=== PATIENT | female | born 1995 | race Caucasian/White ===

== ENCOUNTER 2016-07-20 15:51 | Emergency (ER) | payer OTHER ==
[2016-07-20 15:56] VITALS: BP 141/52; PULSE 70; TEMP 97.8; BMI 22.6
[2016-07-20 17:04] LABS: BASOPHIL 0.4 % (0-2.0); EOSINOPHIL 1.6 % (0-4.5); MCH 29.3 pg (25.7-33.7); MCHC 32.6 g/dl (32.0-36.0); MEAN CELL VOLUME 89.8 fl (80-96); MEAN PLT VOLUME 8.1 fl (7.5-11.1); PLATELET COUNT 261 K/MM3 (134-434); RDW 13.9 % (11.6-15.6); WHITE BLOOD COUNT 7.1 K/mm3 (4.0-10.0)
[2016-07-20 17:44] LABS: URINE APPEARANCE SLCLOUDY; URINE BILIRUBIN NEGATIVE (NEGATIVE); URINE COLOR YELLOW; URINE GLUCOSE (UA) NEGATIVE (NEGATIVE); URINE KETONE 2+ (NEGATIVE); URINE LEUK ESTERASE NEGATIVE (NEGATIVE); URINE NITRITE NEGATIVE (NEGATIVE); URINE UROBILINOGEN NEGATIVE E.U./dl (0.2-1.0)
[2016-07-20 17:48] LABS: URINE BLOOD 3+ (NEGATIVE); URINE PROTEIN 1+ (NEGATIVE)
[2016-07-20 17:54] LABS: URINE MUCUS MODERATE; URINE RBC 1219 /hpf (0-3); URINE WBC 8 /hpf (3-5)
[2016-07-20] MEDS ORDERED: SODIUM CHLORIDE 1,000 ML IV STA (18:02)
--- NOTE | 2016-07-20 18:29 | PDOC ---
History of Present Illness - General History Source: Patient, Old Records Exam Limitations: No Limitations - History of Present Illness Initial Comments: 07/20/16 18:43 The patient is a 21 year old female (; currently approximately 6 weeks ), with no significant past medical history, who presents to the emergency department with abdominal cramping and vaginal bleeding since yesterday but worsening since 2PM this afternoon. The patient additionally admits to associated intermittent back pain which started today. She rates her back pain as 7/10 in severity and reports that episodes of back pain last approximately half an hour. The patient has not seen an DIRECTOR OF PUBLIC RELATIONS or had an ultrasound for this yet as she just found out this week that she is . The patient additionally admits to a productive cough (green phlegm) for the past week and a headache for the past 10 days. The patient denies fever , chills, nausea, vomiting or diarrhea. LMP: 06/05/2016. Allergies: None reported. Past Surgical History: Appendectomy, . Social History: Non smoker. Denies alcohol or drug use. <Narcisa Perez - Last Filed: 07/20/16 21:26> <Magnus Finch - Last Filed: 07/20/16 22:16> - General Chief Complaint: Vaginal Bleeding Stated Complaint: VAGINAL BLEEDING, 6 WEEKS Time Seen by Provider: 07/20/16 16:26 Past History <Narcisa Perez - Last Filed: 07/20/16 21:26> - Past Medical History Anemia: No Asthma: No Cancer: No Cardiac Disorders: No CVA: No COPD: No CHF: No Dementia: No Diabetes: No GI Disorders: No Disorders: No HTN: No Hypercholesterolemia: No Liver Disease: No Seizures: No Thyroid Disease: No - Surgical History Appendectomy: Yes - Reproductive History Is Patient Now?: Yes (#): 2 Para: 1 Therapeutic (s) & number: No Spontaneous : 0 - Immunization History Immunization Up to Date: Yes - Psycho/Social/Smoking Cessation Hx Anxiety: No Suicidal Ideation: No Smoking History: Never smoked Have you smoked in the past 12 months: No Number of Cigarettes Smoked Daily: 0 Cigars Per Day: 0 Hx Alcohol Use: No Drug/Substance Use Hx: No Substance Use Type: None Hx Substance Use Treatment: No <Magnus Finch Last Filed: 07/20/16 22:16> - Past Medical History Allergies/Adverse Reactions: Allergies Allergy/AdvReac Type Severity Reaction Status Date / Time No Known Allergies Allergy Verified 07/20/16 15:53 Home Medications: Ambulatory Orders Ferrous Sulfate 1 tab PO DAILY 10/12/15 Vit/Iron Fumarate/FA [ Tablet] 1 tab PO DAILY 10/12/15 Review of Systems - Review of Systems Able to Perform ROS?: Yes Comments:: 07/20/16 18:44 CONSTITUTIONAL: No fever, no chills, no fatigue EYES: No visual changes ENT: No ear pain, no sore throat CARDIOVASCULAR: No chest pain, no palpitations RESPIRATORY: +Cough. No SOB GI: +Abdominal cramping. No nausea, no vomiting, no constipation, no diarrhea GENITOURINARY: +Vaginal bleeding. No dysuria, no frequency, no hematuria MUSCULOSKELETAL: +Back pain. No joint pain, no myalgias SKIN: No rash NEURO: +Headache <[place] Salmer[place] - Last Filed: 07/20/16 21:26> *Physical Exam - Vital Signs Last Vital Signs Temp Pulse Resp BP Pulse Ox 97.8 F 70 18 141/52 100 07/20/16 15:54 07/20/16 15:54 07/20/16 15:54 07/20/16 15:54 07/20/16 15:54 - Physical Exam Comments: 07/20/16 18:44 CONSTITUTIONAL: Well-appearing; well-nourished; in no apparent distress. HEAD: Normocephalic; atraumatic. EYES: PERRL; EOM intact. ENMT: External appears normal; normal oropharynx. NECK: Supple; non-tender; no cervical lymphadenopathy. CARD: Normal S1, S2; no murmurs, rubs, or gallops. RESP: Normal chest excursion with respiration; breath sounds clear and equal bilaterally; no wheezes, rhonchi, or rales. ABD: Soft, non-distended; non-tender; no palpable organomegaly, no palpable hernias. EXT: Normal ROM in all four extremities; non-tender to palpation; distal pulses intact. SKIN: Warm, dry, no rash. NEURO: No focal neurological deficiencies. PELVIC EXAM: Gross blood noted in the vaginal vault. Cervix unable to visualize secondary to copious dark red blood, some clots seen. On manual exam, cervical os opened to fingertip. No external lesions. <Narcisa Perez - Last Filed: 07/20/16 21:26> - Vital Signs Last Vital Signs Temp Pulse Resp BP Pulse Ox 97.8 F 70 18 141/52 100 07/20/16 15:54 07/20/16 15:54 07/20/16 15:54 07/20/16 15:54 07/20/16 15:54 <Magnus Finch - Last Filed: 07/20/16 22:16> ED Treatment Course - LABORATORY CBC & Chemistry Diagram: 07/20/16 20:15 - ADDITIONAL ORDERS Additional order review: Laboratory Results 07/20/16 07/20/16 16:50 16:50 Beta HCG, Quant 13424.5 Urine Color Yellow Urine Appearance Slcloudy Urine pH 5.0 Ur Specific [place] 1.021 Urine Protein 1+ H Urine Glucose (UA) Negative Urine Ketones 2+ H Urine Blood 3+ H Urine Nitrite Negative Urine Bilirubin Negative Urine Urobilinogen Negative Ur Leukocyte Esterase Negative Urine RBC 1219 Urine WBC 8 Ur Epithelial Cells Rare Urine Mucus Moderate 07/20/16 16:50 RBC 3.97 MCV 89.8 MCHC 32.6 RDW 13.9 MPV 8.1 Neutrophils % 62.0 D Lymphocytes % 29.8 D Monocytes % 6.2 Eosinophils % 1.6 D Basophils % 0.4 D <Narcisa Perez - Last Filed: 07/20/16 21:26> - LABORATORY CBC & Chemistry Diagram: 07/20/16 20:15 - ADDITIONAL ORDERS Additional order review: Laboratory Results 07/20/16 07/20/16 16:50 16:50 Beta HCG, Quant 01100.5 Urine Color Yellow Urine Appearance Slcloudy Urine pH 5.0 Ur Specific [place] 1.021 Urine Protein 1+ H Urine Glucose (UA) Negative Urine Ketones 2+ H Urine Blood 3+ H Urine Nitrite Negative Urine Bilirubin Negative Urine Urobilinogen Negative Ur Leukocyte Esterase Negative Urine RBC 1219 Urine WBC 8 Ur Epithelial Cells Rare Urine Mucus Moderate 07/20/16 16:50 RBC 3.97 MCV 89.8 MCHC 32.6 RDW 13.9 MPV 8.1 Neutrophils % 62.0 D Lymphocytes % 29.8 D Monocytes % 6.2 Eosinophils % 1.6 D Basophils % 0.4 D - RADIOLOGY Radiology Studies Ordered: Category Date Time Status PELVIS(OTHER) US [US] Stat Ultrasound 07/20/16 18:02 Ordered TRANSVAGINAL US PREG [US] Stat Ultrasound 07/20/16 18:02 Ordered <Magnus Finch - Last Filed: 07/20/16 22:16> Medical Decision Making - Medical Decision Making 07/20/16 19:49 EXAM: US/PELVIS (OTHER) ; US/TRANSVAGINAL US PREG Reviewed By: Dr. Ashlyn Barrios IMPRESSION: Single live intrauterine with estimated gestational age of 6 weeks 1 day based on the crown rump length. Is small subchorionic hemorrhage is present. Very low heart rate of 80 bpm for which close follow-up ultrasound is recommended for further evaluation. Called Dr. Oliveira at at 19:48. Referred to answering service. Dr. Oliveira returned call at 19:56. Case discussed. Called Dr. Oliveira at at 21:23. Referred to answering service. Dr. Oliveira returned call at 21:25. Case discussed. <Narcisa Perez - Last Filed: 07/20/16 21:26> - Medical Decision Making 07/20/16 18:39 Patient is a 21-year-old female, 3 para 2, LMP-05/31/2016 who presents with vaginal bleeding, abdominal pain and cramping. In the ER, patient is awake and alert, hemodynamically stable. Abdominal exam reveals no focal tenderness, no guarding or rebound. Pelvic exam reveals brisk pooling of blood in the vaginal vault with some clots and a cervical os open to fingertip. Differential diagnoses includes ectopic versus missed AB versus incomplete AB versus inevitable AB. Will obtain beta hCG, CBC, type and screen; we'll also obtain transvaginal ultrasound. Will reassess. 07/20/16 20:34 Patient reassessed. Patient is noted to be hemodynamically stable. Transvaginal ultrasound shows IUP at 6 weeks 1 day gestation with FH of 80 as well as presence of subchorionic hemorrhage. I discussed the case with Dr. Oliveira of OB /[facility]. He recommends obtaining 4 hour a CBC and reassessment. 07/20/16 22:14 Patient seen and evaluated by Dr. Oliveira. Patient's hemoglobin decreased from 11.6 to 9.7 after period of 4 hours. Patient's bleeding is at a minimum. Heart rate is noted to be 87. Blood pressure is noted to be 106/72. Patient will be discharged with instructions to follow-up in the [facility] OF [facility] RELATIONS clinic in 24 hours return immediately to the ER bleeding increases in severity. 07/20/16 22:15 pt is Rh+; no Rhogam indicated. <Magnus Finch - Last Filed: 07/20/16 22:16> *DC/Admit/Observation/Transfer - Attestations Scribe Attestion: 07/20/16 18:44 Documentation prepared by Narcisa Perez, acting as medical laboratory assistant for Magnus Finch MD. <Narcisa Perez - Last Filed: 07/20/16 21:26> - Attestations Physician Attestion: 07/20/16 18:39 The documentation was prepared by the scribe under my direct supervision. I have reviewed the documentation which correctly represents the findings, medical decision-making and critical action taken by me. <Magnus Finch - Last Filed: 07/20/16 22:16> Diagnosis at time of Disposition: Threatened - Discharge Dispostion Disposition: HOME Condition at time of disposition: Stable - Referrals Referrals: [facility] [Provider Group] - Patient Instructions Printed Discharge Instructions: DI for Threatened Additional Instructions: Follow-up in 24 hours in medical clinic. Return immediately for severe bleeding.
[2016-07-20 20:33] LABS: BASOPHIL 0.4 % (0-2.0); EOSINOPHIL 1.6 % (0-4.5); MCHC 32.4 g/dl (32.0-36.0); MEAN CELL VOLUME 89.5 fl (80-96); NEUTROPHILS 67.5 % (42.8-82.8); PLATELET COUNT 221 K/MM3 (134-434); WHITE BLOOD COUNT 6.3 K/mm3 (4.0-10.0)
== END 2016-07-20 22:21 | disposition home or self-care (01) ==
LOC: JER 15:51
PROC: 3E0337Z Introduction of Electrolytic and Water Balance Substance into Peripheral Vein, Percutaneous Approach (ICD-10-PCS; principal; 2016-07-20)
DX: O20.0 Threatened abortion (principal); Z3A.01 Less than 8 weeks gestation of pregnancy
CPT/HCPCS: 36415; 76817-TC; 76856-TC; 81003; 81015; 84702; 85025; 86850; 86900; 86901; 87086; 99283-25

== ENCOUNTER 2016-08-20 16:55 | Emergency (ER) | payer OTHER ==
[2016-08-20 17:26] VITALS: BMI 22.1
[2016-08-20] MEDS ORDERED: SODIUM CHLORIDE 1,000 ML IV STA (18:19)
[2016-08-20 19:08] LABS: BASOPHIL 0.4 % (0-2.0); MCH 30.6 pg (25.7-33.7); MCHC 34.1 g/dl (32.0-36.0); MEAN CELL VOLUME 89.9 fl (80-96); MEAN PLT VOLUME 7.8 fl (7.5-11.1); NEUTROPHILS 47.9 % (42.8-82.8); PLATELET COUNT 269 K/MM3 (134-434); RDW 13.8 % (11.6-15.6); WHITE BLOOD COUNT 6.2 K/mm3 (4.0-10.0)
[2016-08-20 19:14] LABS: URINE APPEARANCE CLEAR; URINE BILIRUBIN NEGATIVE (NEGATIVE); URINE BLOOD NEGATIVE (NEGATIVE); URINE COLOR YELLOW; URINE GLUCOSE (UA) NEGATIVE (NEGATIVE); URINE KETONE NEGATIVE (NEGATIVE); URINE LEUK ESTERASE NEGATIVE (NEGATIVE); URINE NITRITE NEGATIVE (NEGATIVE); URINE PROTEIN NEGATIVE (NEGATIVE); URINE UROBILINOGEN NEGATIVE E.U./dl (0.2-1.0)
--- NOTE | 2016-08-20 19:30 | PDOC ---
History of Present Illness - History of Present Illness Initial Comments: 08/20/16 19:36 The patient is a 21 year old female, , with no significant past medical history, who presents to the emergency department with diarrhea, intermittent abdominal pain, and dizziness for 3 weeks. She reports about 3 episodes of diarrhea daily for 3 weeks. She describes her diarrhea as yellow, soft and states the bowel floats. She reports her abdominal pain is diffuse, sharp, cramping and intermittent. She states her abdominal pain is alleviated after a bowel movement. She also reports she has lost about 8 pounds since the onset of her symptoms. The patients reports feeling generally weak and dizzy, as if she is spinning when she is sitting still. Secondarily, the patient reports being hit in the forehead with a soft plastic child;s toy resulting in a large bruise. She denies chest pain, shortness of breath, headache. She denies fever, chills, nausea, vomit, and constipation. She denies dysuria, frequency, urgency and hematuria. Allergies: NKDA Past surgical history: appendectomy and Social history: denies toxic habits <Beth Wood - Last Filed: 08/20/16 19:35> <Alirio Castro - Last Filed: 08/21/16 01:41> - General Chief Complaint: Diarrhea Stated Complaint: DIARRHEA/LIGHTHEADED Past History <Beth Wood - Last Filed: 08/20/16 19:35> - Past Medical History Anemia: No Asthma: No Cancer: No Cardiac Disorders: No CVA: No COPD: No CHF: No Dementia: No Diabetes: No GI Disorders: No Disorders: No HTN: No Hypercholesterolemia: No Liver Disease: No Seizures: No Thyroid Disease: No Other medical history: DENIES. - Surgical History Appendectomy: Yes - Reproductive History (#): 2 Para: 1 Therapeutic (s) & number: No Spontaneous : 0 - Immunization History Immunization Up to Date: Yes - Psycho/Social/Smoking Cessation Hx Anxiety: No Suicidal Ideation: No Smoking History: Never smoked Have you smoked in the past 12 months: No Number of Cigarettes Smoked Daily: 0 Cigars Per Day: 0 Hx Alcohol Use: No Drug/Substance Use Hx: No Substance Use Type: None Hx Substance Use Treatment: No <Alirio Castro - Last Filed: 08/21/16 01:41> - Past Medical History Allergies/Adverse Reactions: Allergies Allergy/AdvReac Type Severity Reaction Status Date / Time No Known Allergies Allergy Verified 08/20/16 17:22 Home Medications: Ambulatory Orders Loperamide HCl [Imodium -] 2 mg PO BID #14 capsule 08/20/16 Review of Systems - Review of Systems Able to Perform ROS?: Yes Comments:: 08/20/16 19:36 CONSTITUTIONAL: (+) generalized weakness. Absent: fever, chills, diaphoresis, malaise, loss of appetite HEENT: Absent: rhinorrhea, nasal congestion, throat pain, throat swelling, difficulty swallowing, mouth swelling, ear pain, eye pain, visual Changes CARDIOVASCULAR: Absent: chest pain, syncope, palpitations, irregular heart rate, lightheadedness , peripheral edema RESPIRATORY: Absent: cough, shortness of breath, dyspnea with exertion, orthopnea, wheezing, stridor, hemoptysis GASTROINTESTINAL: (+) abdominal pain cramping and diarrhea. Absent: abdominal distension, nausea, vomiting, constipation, melena, hematochezia GENITOURINARY: Absent: dysuria, frequency, urgency, hesitancy, hematuria, flank pain, genital pain MUSCULOSKELETAL: Absent: myalgia, arthralgia, joint swelling SKIN: Absent: rash, itching, pallor HEMATOLOGIC/IMMUNOLOGIC: Absent: easy bleeding, easy bruising, lymphadenopathy, frequent infections ENDOCRINE: (+) unintentional weight loss, Absent: unexplained weight gain,heat intolerance , cold intolerance NEUROLOGIC: (+) dizziness,Absent: headache, focal weakness or paresthesias, unsteady gait, seizure, mental status changes, bladder or bowel incontinence PSYCHIATRIC: Absent: anxiety, depression, suicidal or homicidal ideation, hallucinations. <Beth Wood - Last Filed: 08/20/16 19:35> *Physical Exam - Vital Signs Last Vital Signs Temp Pulse Resp BP Pulse Ox 97.8 F 72 19 105/54 98 08/20/16 17:22 08/20/16 17:22 08/20/16 17:22 08/20/16 17:22 08/20/16 17:22 - Physical Exam Comments: 08/20/16 19:36 GENERAL: Well developed, well nourished. Awake and alert. No acute distress. HEENT: Normocephalic, atraumatic. PERRLA, EOMI. No conjunctival pallor. Sclera are non- icteric. Moist mucous membranes. Oropharynx is clear. NECK: Supple. Full ROM. No JVD. Carotid pulses 2+ and symmetric, without bruits. No thyromegaly. No lymphadenopathy. CARDIOVASCULAR: Regular rate and rhythm. No murmurs, rubs, or gallops. Distal pulses are 2+ and symmetric. PULMONARY: No evidence of respiratory distress. Lungs clear to auscultation bilaterally. No wheezing, rales or rhonchi. ABDOMINAL: (+) Hyperactive bowel sounds. Soft. Non-tender. Non-distended. No rebound or guarding. No organomegaly. MUSCULOSKELETAL Normal range of motion at all joints. No bony deformities or tenderness. No CVA tenderness. EXTREMITIES: No cyanosis. No clubbing. No edema. No calf tenderness. SKIN: Warm and dry. Normal capillary refill. No rashes. No jaundice. NEUROLOGICAL: Alert, awake, appropriate. Cranial nerves 2-12 intact. Normoreflexic in the upper and lower extremities. Normal speech. Toes are down-going bilaterally. Gait is normal without ataxia. PSYCHIATRIC: Cooperative. Good eye contact. Appropriate mood and affect. <Beth Wood - Last Filed: 08/20/16 19:35> - Vital Signs Last Vital Signs Temp Pulse Resp BP Pulse Ox 97.8 F 72 19 105/54 98 08/20/16 17:22 08/20/16 17:22 08/20/16 17:22 08/20/16 17:22 08/20/16 17:22 <Alirio Castro - Last Filed: 08/21/16 01:41> ED Treatment Course - LABORATORY CBC & Chemistry Diagram: 08/20/16 19:00 08/20/16 19:00 - ADDITIONAL ORDERS Additional order review: Laboratory Results 08/20/16 19:00 Urine Color Yellow Urine Appearance Clear Urine pH 5.0 Ur Specific [place] 1.026 Urine Protein Negative Urine Glucose (UA) Negative Urine Ketones Negative Urine Blood Negative Urine Nitrite Negative Urine Bilirubin Negative Urine Urobilinogen Negative Ur Leukocyte Esterase Negative Urine HCG, Qual Negative 08/20/16 19:00 RBC 3.86 MCV 89.9 MCHC 34.1 RDW 13.8 MPV 7.8 Neutrophils % 47.9 D Lymphocytes % 41.7 H D Monocytes % 7.0 Eosinophils % 3.0 D Basophils % 0.4 - Medications Given in the ED: ED Medications Discontinued Medications Generic Name Dose Route Start Last Admin Trade Name Freq PRN Reason Stop Dose Admin Sodium Chloride 1,000 mls @ 1,000 mls/hr 08/20/16 18:19 08/20/16 19:06 Normal Saline - IV 08/20/16 19:18 1,000 mls/hr ASDIR STA Administration <Beth Wood - Last Filed: 08/20/16 19:35> - LABORATORY CBC & Chemistry Diagram: 08/20/16 19:00 08/20/16 19:00 - ADDITIONAL ORDERS Additional order review: Laboratory Results 08/20/16 19:00 Urine Color Yellow Urine Appearance Clear Urine pH 5.0 Ur Specific [place] 1.026 Urine Protein Negative Urine Glucose (UA) Negative Urine Ketones Negative Urine Blood Negative Urine Nitrite Negative Urine Bilirubin Negative Urine Urobilinogen Negative Ur Leukocyte Esterase Negative Urine HCG, Qual Negative 08/20/16 19:00 RBC 3.86 MCV 89.9 MCHC 34.1 RDW 13.8 MPV 7.8 Neutrophils % 47.9 D Lymphocytes % 41.7 H D Monocytes % 7.0 Eosinophils % 3.0 D Basophils % 0.4 - Medications Given in the ED: ED Medications Discontinued Medications Generic Name Dose Route Start Last Admin Trade Name Nataliia PRN Reason Stop Dose Admin Sodium Chloride 1,000 mls @ 1,000 mls/hr 08/20/16 18:19 08/20/16 19:06 Normal Saline - IV 08/20/16 19:18 1,000 mls/hr ASDIR STA Administration <Alirio Castro - Last Filed: 08/21/16 01:41> *DC/Admit/Observation/Transfer - Attestations Scribe Attestion: 08/20/16 19:36 Documentation prepared by Beth Wood, acting as medical office administrator for Alirio Castro MD, <Beth Wood - Last Filed: 08/20/16 19:35> - Discharge Dispostion Admit: No <Alirio Castro - Last Filed: 08/21/16 01:41> Diagnosis at time of Disposition: Diarrhea - Discharge Dispostion Disposition: HOME Condition at time of disposition: Stable - Prescriptions Prescriptions: Loperamide HCl [Imodium -] 2 mg PO BID #14 capsule - Referrals Referrals: Reji Duvall MD [Staff Physician] - Brissa Willis MD [Primary Care Provider] - - Patient Instructions Printed Discharge Instructions: Diarrhea
[2016-08-20 19:35] LABS: ALBUMIN 4.3 g/dl (3.4-5.0); ALK PHOS 66 U/L (45-117); ANION GAP 7 (8-16); BILIRUBIN,TOTAL 0.5 mg/dL (0.2-1.0); CALCIUM 8.7 mg/dL (8.5-10.1); CO2 24 mmol/L (21-32); CREATININE 0.5 mg/dL (0.55-1.02); GLUCOSE,RANDOM 77 mg/dL (74-106); SGOT/AST 20 U/L (15-37); SGPT/ALT 21 U/L (12-78); TOT PROT 7.4 g/dl (6.4-8.2)
[2016-08-20 21:32] VITALS: BP 110/67; PULSE 78; TEMP 98.6
== END 2016-08-20 21:29 | disposition home or self-care (01) ==
LOC: JER 16:55
PROC: 3E0337Z Introduction of Electrolytic and Water Balance Substance into Peripheral Vein, Percutaneous Approach (ICD-10-PCS; principal; 2016-08-20)
DX: R19.7 Diarrhea, unspecified (principal)
CPT/HCPCS: 36415; 80053; 81003; 84703; 85025; 85651; 87045; 87046; 87086; 96360; 99283-25

== ENCOUNTER 2017-10-14 20:26 | Emergency (ER) | payer OTHER ==
[2017-10-14 20:34] VITALS: BP 117/45; PULSE 80; TEMP 97.5; BMI 22.4
[2017-10-14] MEDS ORDERED: SODIUM CHLORIDE 0.9% 500 ML INFUS.BAG IV ONE (20:56)
[2017-10-14] MEDS ORDERED: MAG HYDROX/AL HYDROX/SIMETH -MYLANTA- ORAL SUSPENSION PO ONE (20:56)
[2017-10-14] MEDS ORDERED: ONDANSETRON 4 MG/2 ML VIAL IVPUSH ONE (20:56)
[2017-10-14] MEDS ORDERED: PANTOPRAZOLE SODIUM 40 MG VIAL IVPUSH ONE (20:56)
[2017-10-14 20:59] LABS: HCG,QUALITATIVE URINE NEGATIVE; URINE APPEARANCE CLOUDY; URINE BILIRUBIN NEGATIVE (<2.0 mg/dL); URINE BLOOD NEGATIVE (NEGATIVE); URINE COLOR YELLOW; URINE GLUCOSE (UA) NEGATIVE (NEGATIVE); URINE KETONE NEGATIVE (NEGATIVE); URINE LEUK ESTERASE TRACE (NEGATIVE); URINE NITRITE NEGATIVE (NEGATIVE); URINE PROTEIN NEGATIVE (NEGATIVE); URINE UROBILINOGEN NEGATIVE mg/dL (0.2-1.0)
[2017-10-14 21:14] LABS: EPI CELLS MANY /HPF (FEW); URINE MUCUS MODERATE
[2017-10-14 21:28] LABS: URINE BACTERIA RARE /hpf (NONE SEEN)
--- NOTE | 2017-10-14 21:49 | PDOC ---
History of Present Illness - General Chief Complaint: Pain, Acute Stated Complaint: ABDOMINAL PAIN Time Seen by Provider: 10/14/17 20:33 - History of Present Illness Initial Comments: 10/14/17 21:43 CHIEF COMPLAINT: abdominal pain HISTORY OF PRESENT ILLNESS: 22 yo F with no significant PMH presents to ED with epigastric pain radiating to LUQ since this morning, accompanied by nausea. Patient reports that she started feeling "funny" last night and did not eat very much "but I had rice, beans, chicken around 8 pm." She denies any fever, vomiting, or diarrhea, but does report that she has felt "a little burning" with urination. She also reports that she saw a doctor two days ago and was given fluconazole for a yeast infection. She reports that her LMP was 3 months ago "because I have an IUD." Her last BM was yesterday and she denies any constipation, diarrhea, or rectal bleeding. PAST MEDICAL HISTORY: Denies past medical history FAMILY HISTORY: Denies SOCIAL HISTORY: Denies tobacco, alcohol, illicit drug use. SURGICAL HISTORY: Denies ALLERGIES: No known drug allergies REVIEW OF SYSTEMS General/Constitutional: Denies fever or chills. Denies weakness. HEENT: Denies change in vision. Denies ear pain or discharge. Denies sore throat. Cardiovascular: Denies chest pain or shortness of breath. Respiratory: Denies cough, wheezing, or hemoptysis. Gastrointestinal: Epigastric discomfort radiating to LUQ since this morning, with accompanying nausea. Vomiting, diarrhea or constipation. Denies rectal bleeding. Genitourinary: Burning sensation with urination, "and a little blood." Musculoskeletal: Denies joint or muscle swelling or pain. Denies neck or back pain. Skin: Denies rash or easy bruising. Neurologic: Denies headache, vertigo, loss of consciousness, or loss of sensation. PHYSICAL EXAM General Appearance: Well-appearing, appropriately dressed. No apparent distress. HEENT: EOMI, PERRLA. No conjunctival pallor. No photophobia, scleral icterus. Respiratory/Chest: Lungs CTAB. Cardiovascular: RRR. S1, S2. Gastrointestinal/Abdominal: Normal bowel sounds. Abdomen soft, non-distended. No tenderness or rebound tenderness. No organomegaly, pulsatile mass, guarding , hernia, hepatomegaly, splenomegaly. Musculoskeletal/Extremities: Normal inspection. FROM of all extremities, normal capillary refill. Pelvis Stable. No CVA tenderness. No tenderness to extremities, pedal edema, swelling, erythema or deformity. Integumentary: Appropriate color, dry, warm. No cyanosis, erythema, jaundice or rash Neurologic: import/export specialist II-XII intact. Fully oriented, alert. Appropriate mood/affect. Motor strength 5/5. No appreciable EOM palsy, facial droop or sensory deficit. 10/14/17 21:50 Past History - Past Medical History Allergies/Adverse Reactions: Allergies Allergy/AdvReac Type Severity Reaction Status Date / Time No Known Allergies Allergy Verified 10/14/17 20:32 Home Medications: Ambulatory Orders Loperamide HCl [Imodium -] 2 mg PO BID #14 capsule 08/20/16 Tamsulosin HCl [Flomax] 0.4 mg PO DAILY #14 cap.er.24h 10/15/17 Anemia: No Asthma: No Cancer: No Cardiac Disorders: No CVA: No COPD: No CHF: No Dementia: No Diabetes: No GI Disorders: No Disorders: No HTN: No Hypercholesterolemia: No Liver Disease: No Seizures: No Thyroid Disease: No - Surgical History Appendectomy: Yes - Reproductive History (#): 2 Para: 1 Therapeutic (s) & number: No Spontaneous : 0 - Immunization History Immunization Up to Date: Yes - Suicide/Smoking/Psychosocial Hx Smoking History: Never smoked Have you smoked in the past 12 months: No Number of Cigarettes Smoked Daily: 0 Cigars Per Day: 0 Hx Alcohol Use: No Drug/Substance Use Hx: No Substance Use Type: None Hx Substance Use Treatment: No *Physical Exam - Vital Signs Last Vital Signs Temp Pulse Resp BP Pulse Ox 97.5 F L 80 18 117/45 100 10/14/17 20:32 10/14/17 20:32 10/14/17 20:32 10/14/17 20:32 10/14/17 20:32 ED Treatment Course - ADDITIONAL ORDERS Additional order review: Laboratory Results 10/14/17 20:50 Urine Color Yellow Urine Appearance Cloudy Urine pH 7.0 D Ur Specific [place] 1.023 Urine Protein Negative Urine Glucose (UA) Negative Urine Ketones Negative Urine Blood Negative Urine Nitrite Negative Urine Bilirubin Negative Urine Urobilinogen Negative Ur Leukocyte Esterase Trace Urine WBC (Auto) 7 Urine RBC (Auto) 13 Ur Epithelial Cells Many Urine Bacteria Rare Urine Mucus Moderate Urine HCG, Qual Negative Medical Decision Making - Medical Decision Making 10/14/17 21:52 22 yo F with no significant PMH presents to ED with epigastric pain radiating to LUQ since this morning, accompanied by nausea. Patient is well appearing, exam unremarkable with no tenderness to palpation to abdomen. No CVA tenderness. -UA, Ucx, upreg 10/14/17 22:30 Patient reassessed, at this time the patient feels better. She reports that "I vomited a little bit but after that I feel better." Likely nausea and vomiting due to mild gastroenteritis. Discussed with patient possibility of renal stone vs irregular menses as she does have 13 RBC in urine, but patient states she does not want to wait to do ultrasound or CT and will follow up with PCP tomorrow. Discussed with patient return precautions, patient verbalized understanding and agrees to plan. *DC/Admit/Observation/Transfer Diagnosis at time of Disposition: Kidney stone Nausea & vomiting Qualifiers: Vomiting type: unspecified Vomiting Intractability: non-intractable Qualified Code(s): R11.2 - Nausea with vomiting, unspecified - Discharge Dispostion Disposition: HOME Condition at time of disposition: Stable Admit: No - Prescriptions Prescriptions: Tamsulosin HCl [Flomax] 0.4 mg PO DAILY #14 cap.er.24h - Referrals Referrals: Brissa Willis MD [Primary Care Provider] - - Patient Instructions Printed Discharge Instructions: Nausea and Vomiting-Adult, DI for Kidney Stones Additional Instructions: As discussed, please follow up with your primary care doctor tomorrow regarding your symptoms. If you develop persistent vomiting or worsening pain, please return to the ER. - Post Discharge Activity
[2017-10-14] MEDS ORDERED: FAMOTIDINE IV 20 MG/12 ML VIAL IVPUSH SCH (22:00)
[2017-10-14] MEDS ORDERED: FAMOTIDINE 20 MG/50 ML IVPB 20 MG/50 ML MG IVPB ONE (22:15)
[2017-10-14] MEDS ORDERED: PANTOPRAZOLE SODIUM 40 MG/100 ML BAG IVPB ONE (22:15)
[2017-10-14] MEDS ORDERED: MAG HYDROX/AL HYDROX/SIMETH 30 ML UNIT-DOSE CUP ONE (22:16)
[2017-10-15] MEDS ORDERED: KETOROLAC TROMETHAMINE 30 MG/1 ML VIAL IVPUSH ONE
[2017-10-15] MEDS ORDERED: KETOROLAC TROMETHAMINE 30 MG/1 ML VIAL ONE (00:03)
== END 2017-10-15 00:24 | disposition home or self-care (01) ==
LOC: JER 20:26
PROC: 3E0333Z Introduction of Anti-inflammatory into Peripheral Vein, Percutaneous Approach (ICD-10-PCS; principal; 2017-10-14)
PROC: 3E033GC Introduction of Other Therapeutic Substance into Peripheral Vein, Percutaneous Approach (ICD-10-PCS; 2017-10-14)
PROC: 3E033GC Introduction of Other Therapeutic Substance into Peripheral Vein, Percutaneous Approach (ICD-10-PCS; 2017-10-14)
PROC: 3E033GC Introduction of Other Therapeutic Substance into Peripheral Vein, Percutaneous Approach (ICD-10-PCS; 2017-10-14)
DX: N20.0 Calculus of kidney (principal)
CPT/HCPCS: 76775-TC; 81003; 81015; 84703; 87086; 96374; 96375; 99283-25

== ENCOUNTER 2018-10-22 20:57 | Emergency (ER) | payer OTHER ==
[2018-10-22 21:01] VITALS: BP 106/67; PULSE 94; BMI 23.8
[2018-10-22] MEDS ORDERED: IBUPROFEN 600 MG TABLET (FP) PO ONE ×2 (21:01→21:09)
--- NOTE | 2018-10-22 21:05 | PDOC ---
Rapid Medical Evaluation Chief Complaint: Cold Symptoms Time Seen by Provider: 10/22/18 20:59 Medical Evaluation: Allergies Allergy/AdvReac Type Severity Reaction Status Date / Time No Known Allergies Allergy Verified 10/14/17 20:32 10/22/18 20:59 c/o fever bodyaches x2 days. son with URI symptoms as per patient/ PE: patient alert ox3. + pharyngeal erythema BS clear A: URI P: influenza rapid strep fever control patient to the ER for further management Discharge Disposition - Diagnosis URI (upper respiratory infection) Qualifiers: URI type: unspecified URI Qualified Code(s): J06.9 - Acute upper respiratory infection, unspecified - Referrals - Patient Instructions - Post Discharge Activity
--- NOTE | 2018-10-22 21:24 | PDOC ---
History of Present Illness - General Chief Complaint: Cold Symptoms Stated Complaint: FLU SYMPTOMS Time Seen by Provider: 10/22/18 20:59 - History of Present Illness Initial Comments: 10/22/18 21:23 23-year-old female without comorbidities presents for evaluation of flulike symptoms times one day Past History - Past Medical History Allergies/Adverse Reactions: Allergies Allergy/AdvReac Type Severity Reaction Status Date / Time No Known Allergies Allergy Verified 10/22/18 21:01 Home Medications: Ambulatory Orders Loperamide HCl [Imodium -] 2 mg PO BID #14 capsule 08/20/16 Tamsulosin HCl [Flomax] 0.4 mg PO DAILY #14 cap.er.24h 10/15/17 Oseltamivir Phosphate [Tamiflu] 75 mg PO BID #10 capsule 10/22/18 Anemia: No Asthma: No Cancer: No Cardiac Disorders: No CVA: No COPD: No CHF: No Dementia: No Diabetes: No GI Disorders: No Disorders: No HTN: No Hypercholesterolemia: No Liver Disease: No Seizures: No Thyroid Disease: No - Surgical History Appendectomy: Yes - Reproductive History (#): 2 Para: 1 Therapeutic (s) & number: No Spontaneous : 0 - Immunization History Immunization Up to Date: Yes - Suicide/Smoking/Psychosocial Hx Smoking History: Never smoked Have you smoked in the past 12 months: No Number of Cigarettes Smoked Daily: 0 Cigars Per Day: 0 Hx Alcohol Use: No Drug/Substance Use Hx: No Substance Use Type: None Hx Substance Use Treatment: No Review of Systems - Review of Systems Constitutional: Yes: Chills, Fever, Malaise, Night Sweats HEENTM: Yes: Nose Congestion, Throat Pain Respiratory: Yes: Cough *Physical Exam - Vital Signs Last Vital Signs Temp Pulse Resp BP Pulse Ox 100.2 F H 94 H 18 106/67 99 10/22/18 20:58 10/22/18 20:58 10/22/18 20:58 10/22/18 20:58 10/22/18 20:58 - Physical Exam Comments: 10/22/18 21:23 HEAD: NC/AT EYES: Conjuntiva clear Ears: Canals and TM's normal NOSE: No d/c THROAT: Moist mucous membrances, oral pharanx mildly erythematous, uvula midline NECK: Supple without adenopathy CARDIAC: S1 S2 LUNGS: CTA Full and Equal breath sounds ABDOMEN: Soft NT ND MS: Full ROM in all joints without edema NEUROLOGIC: No gross sensory or motor deficits, NVID SKIN: Normal color and temperature no lesions or rashes ED Treatment Course - Medications Given in the ED: ED Medications Discontinued Medications Generic Name Dose Route Start Last Admin Trade Name Nataliia PRN Reason Stop Dose Admin Ibuprofen 600 mg 10/22/18 21:01 10/22/18 21:11 Motrin - PO 10/22/18 21:02 600 mg ONCE ONE Administration *DC/Admit/Observation/Transfer Diagnosis at time of Disposition: Influenza URI (upper respiratory infection) Qualifiers: URI type: unspecified URI Qualified Code(s): J06.9 - Acute upper respiratory infection, unspecified - Discharge Dispostion Disposition: HOME Condition at time of disposition: Stable Decision to Admit order: No - Prescriptions Prescriptions: Oseltamivir Phosphate [Tamiflu] 75 mg PO BID #10 capsule - Referrals Referrals: Brissa Willis MD [Primary Care Provider] - - Patient Instructions Printed Discharge Instructions: Influenza, DI for Influenza -- Adult Additional Instructions: Please take the Tamiflu as directed. Return to the emergency room for worsening symptoms. Tylenol and Motrin as directed for body aches and fevers. Follow-up with your primary care physician in one to 2 days for further evaluation and treatment options. - Post Discharge Activity
[2018-10-22 22:47] VITALS: TEMP 99.1
== END 2018-10-22 22:53 | disposition home or self-care (01) ==
LOC: JERFT 20:57
DX: J09.X2 Influenza due to identified novel influenza A virus with other respiratory manifestations (principal)
CPT/HCPCS: 87070; 87804; 87880; 99281-25

== ENCOUNTER 2019-08-11 17:14 | Emergency (ER) | payer OTHER ==
[2019-08-11 17:32] VITALS: BP 108/55; PULSE 69; TEMP 979; BMI 24.0
--- NOTE | 2019-08-11 17:33 | PDOC ---
Rapid Medical Evaluation Time Seen by Provider: 08/11/19 17:26 Medical Evaluation: Allergies Allergy/AdvReac Type Severity Reaction Status Date / Time No Known Allergies Allergy Verified 10/22/18 21:01 08/11/19 17:29 This patient had brief in-person evaluation in triage cc: headaches HPI: Patient reports headaches today with nausea and blurred vision. Sent by pmd for imaging PE: NAD PERRLA, EOMI unlabored breathing Oders: urine test, analgesia This patient will proceed to emergency department for further evaluation. Discharge Disposition - Diagnosis Headache - Referrals - Patient Instructions - Post Discharge Activity
[2019-08-11] MEDS ORDERED: ACETAMINOPHEN 500 MG TABLET (FP) PO ONE (17:34)
[2019-08-11] MEDS ORDERED: ACETAMINOPHEN 500 MG TABLET (FP) ONE (20:07)
--- NOTE | 2019-08-11 20:10 | PDOC ---
History of Present Illness - General Chief Complaint: Headache Stated Complaint: SENT BY DOCTOR Time Seen by Provider: 08/11/19 17:26 - History of Present Illness Initial Comments: 08/11/19 20:09 24-year-old female without comorbidities presents for evaluation of 4 days of headache unrelieved by Tylenol. Past History - Past Medical History Allergies/Adverse Reactions: Allergies Allergy/AdvReac Type Severity Reaction Status Date / Time No Known Allergies Allergy Verified 08/11/19 17:32 Home Medications: Ambulatory Orders Loperamide HCl [Imodium -] 2 mg PO BID #14 capsule 08/20/16 Tamsulosin HCl [Flomax] 0.4 mg PO DAILY #14 cap.er.24h 10/15/17 Oseltamivir Phosphate [Tamiflu] 75 mg PO BID #10 capsule 10/22/18 Anemia: No Asthma: No Cancer: No Cardiac Disorders: No CVA: No COPD: No CHF: No Dementia: No Diabetes: No GI Disorders: Yes (GERD) Disorders: No HTN: No Hypercholesterolemia: No Liver Disease: No Seizures: No Thyroid Disease: No Other medical history: R ADRENAL CYST - Surgical History Appendectomy: Yes - Reproductive History (#): 2 Para: 1 Therapeutic (s) & number: No Spontaneous : 0 - Immunization History Immunization Up to Date: Yes - Psycho Social/Smoking Cessation Hx Smoking History: Never smoked Have you smoked in the past 12 months: No Number of Cigarettes Smoked Daily: 0 Cigars Per Day: 0 Information on smoking cessation initiated: No Hx Alcohol Use: No Drug/Substance Use Hx: No Substance Use Type: None Hx Substance Use Treatment: No Review of Systems - Review of Systems Constitutional: No: Fever ABD/GI: Yes: Nausea. No: Vomiting Neurological: Yes: Headache *Physical Exam - Vital Signs Last Vital Signs Temp Pulse Resp BP Pulse Ox 979 F H 69 17 108/55 L 99 08/11/19 17:26 08/11/19 17:26 08/11/19 17:26 08/11/19 17:26 08/11/19 17:26 - Physical Exam 08/11/19 20:09 GENERAL: The patient is awake, alert, and fully oriented, in no acute distress. HEAD: Normal with no signs of trauma. EYES: sclera anicteric, conjunctiva clear. ENT: Ears normal tympanic membranes normal oropharynx clear uvula midline NECK: Normal range of motion LUNGS: Breath sounds equal, clear to auscultation bilaterally. No wheezes, and no crackles. HEART: S1 and S2 without murmur, rub or gallop. ABDOMEN: Soft, nontender, normoactive bowel sounds. No guarding, no rebound. No masses. EXTREMITIES: Normal range of motion, no edema. No clubbing or cyanosis. No cords, erythema, or tenderness. NEUROLOGICAL: Cranial nerves II through XII grossly intact. PSYCH: Normal mood, normal affect. SKIN: Warm, Dry, normal turgor, no rashes or lesions noted. ED Treatment Course - RADIOLOGY Radiology Studies Ordered: Category Date Time Status HEAD CT WITHOUT CONTRAST [CT] Stat CT Scan 08/11/19 20:04 Ordered - Medications Given in the ED: ED Medications Discontinued Medications Generic Name Dose Route Start Last Admin Trade Name Freq PRN Reason Stop Dose Admin Acetaminophen 1,000 mg 08/11/19 17:34 08/11/19 20:05 Tylenol - PO 08/11/19 17:35 1,000 mg ONCE ONE Administration Medical Decision Making - Medical Decision Making 08/11/19 21:37 Headache relieved CAT scan normal follow-up with neurology Discharge - Discharge Information Problems reviewed: Yes Clinical Impression/Diagnosis: Headache Condition: Improved Disposition: HOME - Admission No - Follow up/Referral Referrals: Martin Ventura MD [Staff Physician] - - Patient Discharge Instructions Additional Instructions: Tylenol and Motrin for headaches. Return to the emergency room for worsening symptoms and without fail follow-up with neurology in 2 to 3 days for further evaluation and treatment options. Your CAT scan was normal today - Post Discharge Activity
== END 2019-08-12 03:10 | disposition home or self-care (01) ==
LOC: JER 17:14 → JERFT 17:14
DX: R51 Headache (principal); K21.9 Gastro-esophageal reflux disease without esophagitis
CPT/HCPCS: 70450-TC; 84703; 99282-25

== ENCOUNTER 2019-09-16 07:15 | Emergency (ER) | payer OTHER ==
[2019-09-16 07:43] VITALS: BP 98/61; PULSE 75; TEMP 98; BMI 23.2
[2019-09-16] MEDS ORDERED: IBUPROFEN 400 MG TABLET (FP) PO ONE ×2 (07:43→07:55)
--- NOTE | 2019-09-16 07:47 | PDOC ---
History of Present Illness - General Chief Complaint: Cold Symptoms Stated Complaint: COUGH Time Seen by Provider: 09/16/19 07:38 History Source: Patient Exam Limitations: No Limitations - History of Present Illness Initial Comments: 09/16/19 07:40 24-year-old female presents to ED for evaluation of sore throat and cough. Patient states about a week ago was seen by her PCP with complaints of the same including epigastric burning into her chest worsened at night. Patient was placed on Pepcid which she states is been taking for almost 1 week. Patient states although the epigastric and acid taste has decreased the sore throat and cough continues. Patient denies fever, chills, difficulty swallowing, but states coughing is still worse at night. Patient states is taking NyQuil with moderate improvement. Patient does not smoke has had any recent travel or has history of asthma or other respiratory illnesses Is this a multiple visit Asthma Patient?: No Timing/Duration: reports: other Severity: reports: mild Possible Cause: Yes: no prior episodes Modifying Factors: improves with: coughing Associated Symptoms: reports: cough, sore throat Past History - Travel Traveled outside of the country in the last 30 days: No Close contact w/someone who was outside of country & ill: No - Past Medical History Allergies/Adverse Reactions: Allergies Allergy/AdvReac Type Severity Reaction Status Date / Time No Known Allergies Allergy Verified 08/11/19 17:32 Home Medications: Ambulatory Orders Loperamide HCl [Imodium -] 2 mg PO BID #14 capsule 08/20/16 Tamsulosin HCl [Flomax] 0.4 mg PO DAILY #14 cap.er.24h 10/15/17 Oseltamivir Phosphate [Tamiflu] 75 mg PO BID #10 capsule 10/22/18 Benzonatate [Tessalon [place] -] 100 mg PO BID #20 capsule 09/16/19 Ibuprofen [Motrin -] 400 mg PO TID #21 tablet 09/16/19 Phenol/Glycerin [Chloraseptic Max [place]] 1 - 2 spray PO TID PRN #1 spray 09/16/19 Anemia: No Asthma: No Cancer: No Cardiac Disorders: No CVA: No COPD: No CHF: No Dementia: No Diabetes: No GI Disorders: Yes (GERD) Disorders: No HTN: No Hypercholesterolemia: No Liver Disease: No Seizures: No Thyroid Disease: No - Surgical History Appendectomy: Yes - Reproductive History (#): 2 Para: 1 Therapeutic (s) & number: No Spontaneous : 0 - Immunization History Immunization Up to Date: Yes - Psycho Social/Smoking Cessation Hx Smoking History: Never smoked Have you smoked in the past 12 months: No Number of Cigarettes Smoked Daily: 0 Cigars Per Day: 0 Information on smoking cessation initiated: No Hx Alcohol Use: No Drug/Substance Use Hx: No Substance Use Type: None Hx Substance Use Treatment: No Patient Lives Alone: No Lives with/in: parents Respiratory Specific PMHX - Complaint Specific PMHX Hx Vaping: No Hx Bronchitis: No Review of Systems - Review of Systems Able to Perform ROS?: Yes Constitutional: No: Symptoms Reported HEENTM: Yes: Throat Pain Respiratory: Yes: Cough. No: Shortness of Breath, Wheezing, Productive cough Cardiac (ROS): No: Symptoms Reported ABD/GI: No: Symptoms Reported : No: Symptoms Reported Musculoskeletal: No: Symptoms Reported Integumentary: No: Symptoms Reported Neurological: No: Symptoms reported *Physical Exam - Vital Signs Last Vital Signs Temp Pulse Resp BP Pulse Ox 98.0 F 75 18 98/61 100 09/16/19 07:25 09/16/19 07:25 09/16/19 07:25 09/16/19 07:25 09/16/19 07:25 - Physical Exam General Appearance: Yes: Nourished, Appropriately Dressed. No: Apparent Distress HEENT: positive: TMs Normal, Pharynx Normal, Muffled/Hoarse voice (Hoarse). negative: Pale Conjunctivae, Pharyngeal Erythema, Tonsillar Exudate, Tonsillar Erythema, Nasal Congestion, Sinus Tenderness Neck: positive: Supple Respiratory/Chest: positive: Lungs Clear, Normal Breath Sounds. negative: Respiratory Distress, Accessory Muscle Use Cardiovascular: positive: Regular Rhythm, Regular Rate. negative: Murmur Gastrointestinal/Abdominal: positive: Soft. negative: Tenderness Integumentary: positive: Normal Color, Warm, Moist Neurologic: positive: Motor Strength 5/5 (Ambulatory) Medical Decision Making - Medical Decision Making 09/16/19 07:56 Chief complaint: Sore throat and hoarseness along with cough worsened at night. Patient recently started on Pepcid which she states alleviated some of her symptoms but the sore throat and cough continues. Symptoms worsen at night. No other complaints. y. Exam: Normal physical exam vital signs stable. Lungs clear to auscultation. Plan: Motrin for discomfort discharged with the same along with Tessalon Perles for cough and Chloraseptic [place] Discharge - Discharge Information Problems reviewed: Yes Clinical Impression/Diagnosis: Sore throat, Cough Condition: Good Disposition: HOME - Additional Discharge Information Prescriptions: Phenol/Glycerin [Chloraseptic Max [place]] 1 - 2 spray PO TID PRN #1 spray PRN Reason: Sore Throat Ibuprofen [Motrin -] 400 mg PO TID #21 tablet Benzonatate [Tessalon Pearls -] 100 mg PO BID #20 capsule - Follow up/Referral - Patient Discharge Instructions Patient Printed Discharge Instructions: Sore Throat Additional Instructions: Please avoid harsh abrasive foods eating soft foods to avoid irritation. Use Chloraseptic [place] during the day as needed. Take Motrin [id number] for the discomfort. Use Tessalon at night to avoid excessive coughing - Post Discharge Activity
== END 2019-09-16 08:03 | disposition home or self-care (01) ==
LOC: JER 07:15
DX: J02.9 Acute pharyngitis, unspecified (principal); K21.9 Gastro-esophageal reflux disease without esophagitis
CPT/HCPCS: 99282-25

== ENCOUNTER 2019-12-16 21:21 | Emergency (ER) | payer OTHER ==
[2019-12-16 21:30] VITALS: BP 97/61; PULSE 87; TEMP 98.3; BMI 23.2
[2019-12-16 21:58] LABS: BASO % 0.4 % (0-2.0); EOS % 1.9 % (0-4.5); HEMATOCRIT 35.2 % (32.4-45.2); LYMPH % 34.2 % (8-40); MCH 32.1 pg (25.7-33.7); MCHC 34.2 g/dl (32.0-36.0); MEAN CELL VOLUME 93.9 fl (80-96); MEAN PLT VOLUME 7.5 fl (7.5-11.1); MONO % 8.5 % (3.8-10.2); PLATELET COUNT 253 K/MM3 (134-434); RBC 3.75 M/mm3 (3.60-5.2); RDW 12.9 % (11.6-15.6); WHITE BLOOD COUNT 7.3 K/mm3 (4.0-10.0)
[2019-12-16 22:01] LABS: EPI CELLS 35 /uL (0-25.1); HYALINE CASTS 0 /uL (0-3.1); URINE APPEARANCE CLEAR; URINE BACTERIA 697 /uL (0-1359); URINE BILIRUBIN NEGATIVE (NEGATIVE); URINE COLOR YELLOW; URINE GLUCOSE (UA) NEGATIVE (NEGATIVE); URINE KETONE NEGATIVE (NEGATIVE); URINE LEUK ESTERASE 2+ (NEGATIVE); URINE NITRITE NEGATIVE (NEGATIVE); URINE PROTEIN NEGATIVE (NEGATIVE); URINE RBC 2 /uL (0-23.9); URINE UROBILINOGEN 0.2 mg/dL (0.2-1.0); URINE WBC 22 /uL (0-25.8)
[2019-12-16] MEDS ORDERED: ACETAMINOPHEN 325 MG TABLET (FP) PO ONE (23:01)
[2019-12-16] MEDS ORDERED: ACETAMINOPHEN 325 MG TABLET (FP) ONE (23:05)
== END 2019-12-16 23:39 | disposition home or self-care (01) ==
LOC: JER 21:21
DX: R10.2 Pelvic and perineal pain (principal); Z3A.01 Less than 8 weeks gestation of pregnancy
CPT/HCPCS: 36415; 76817-TC; 81003; 84702; 85025; 99284-25

== ENCOUNTER 2020-01-14 20:45 | Emergency (ER) | payer OTHER ==
--- NOTE | 2020-01-14 20:52 | PDOC ---
Rapid Medical Evaluation Time Seen by Provider: 01/14/20 20:50 Medical Evaluation: Allergies Allergy/AdvReac Type Severity Reaction Status Date / Time No Known Allergies Allergy Verified 12/16/19 21:28 01/14/20 20:50 I have performed a brief in-person evaluation of this patient. CC:lower abdominal pain; 8 wks preg - LMP 5/12; pink vaginal discharge; seen by development educator today for same- denies Sono performed PE: deferred Orders: urine, labs, sono, tylenol Patient to proceed to ED for Further evaluation. Discharge Disposition - Diagnosis Abdominal pain affecting - Referrals - Patient Instructions - Post Discharge Activity
[2020-01-14] MEDS ORDERED: ACETAMINOPHEN 325 MG TABLET (FP) PO ONE (20:53)
[2020-01-14 20:58] VITALS: BMI 22.2
[2020-01-14] MEDS ORDERED: ACETAMINOPHEN 325 MG TABLET (FP) ONE (21:38)
[2020-01-14 22:24] LABS: BASO % 0.3 % (0-2.0); EOS % 0.8 % (0-4.5); HEMATOCRIT 35.4 % (32.4-45.2); HEMOGLOBIN 12.1 GM/dL (10.7-15.3); LYMPH % 23.4 % (8-40); MCH 31.8 pg (25.7-33.7); MEAN CELL VOLUME 93.4 fl (80-96); MEAN PLT VOLUME 8.4 fl (7.5-11.1); MONO % 5.6 % (3.8-10.2); NEUT % 69.9 % (42.8-82.8); PLATELET COUNT 255 K/MM3 (134-434); RDW 12.4 % (11.6-15.6); WHITE BLOOD COUNT 8.1 K/mm3 (4.0-10.0)
--- NOTE | 2020-01-14 22:46 | PDOC ---
History of Present Illness - General Chief Complaint: Pain Stated Complaint: 8 WK SD/ABD PAIN Time Seen by Provider: 01/14/20 20:50 - History of Present Illness Initial Comments: 01/14/20 22:45 24-year-old G4, P2 6 weeks gravid presents with 1 day of spotting Past History - Medical History Allergies/Adverse Reactions: Allergies Allergy/AdvReac Type Severity Reaction Status Date / Time No Known Allergies Allergy Verified 01/14/20 20:54 Home Medications: Ambulatory Orders Oseltamivir Phosphate [Tamiflu] 75 mg PO BID #10 capsule 10/22/18 Benzonatate [Tessalon Pearls -] 100 mg PO BID #20 capsule 09/16/19 Ibuprofen [Motrin -] 400 mg PO TID #21 tablet 09/16/19 Albuterol Sulfate [Albuterol Sulfate Hfa] 2 puff IH Q4H PRN #1 hfa.aer.ad 09/20/19 Famotidine 20 mg PO DAILY 09/20/19 Phenol/Glycerin [Chloraseptic Max [place]] 1 spray PO PRN 09/20/19 Anemia: No Asthma: No Cancer: No Cardiac Disorders: No CVA: No COPD: No CHF: No Dementia: No Diabetes: No GI Disorders: Yes (GERD) Disorders: No HTN: No Hypercholesterolemia: No Liver Disease: No Seizures: No Thyroid Disease: No - Surgical History Appendectomy: Yes - Reproductive History (#): 2 Para: 1 Therapeutic (s) & number: No Spontaneous : 0 - Immunization History Immunization Up to Date: Yes - Psycho-Social/Smoking History Smoking History: Never smoked Have you smoked in the past 12 months: Yes Number of Cigarettes Smoked Daily: 3 Cigars Per Day: 0 - Substance Abuse Hx (Audit-C & DAST Scrn) How often the patient has a drink containing alcohol: Never Score: In Men: 4 or > Positive; In Women: 3 or > Positive: 0 Screen Result (Pos requires Nsg. Audit-10AR): Negative Review of Systems - Review of Systems : Yes: See HPI *Physical Exam - Vital Signs Last Vital Signs Temp Pulse Resp BP Pulse Ox 98 F 83 18 100/65 100 01/14/20 20:51 01/14/20 20:51 01/14/20 20:51 01/14/20 20:51 01/14/20 20:51 - Physical Exam 01/14/20 22:45 Female pelvic exam done with nurse in the room for the entire time. Bimanual examination showed right-sided adnexal tenderness and with a cervical cervical office which was retroverted ED Treatment Course - LABORATORY CBC & Chemistry Diagram: 01/14/20 21:59 01/14/20 21:59 - ADDITIONAL ORDERS Additional order review: 01/14/20 21:59 RBC 3.80 MCV 93.4 MCHC 34.0 RDW 12.4 MPV 8.4 D Neutrophils % 69.9 D Lymphocytes % 23.4 D Monocytes % 5.6 Eosinophils % 0.8 Basophils % 0.3 Medical Decision Making - Medical Decision Making 01/14/20 22:45 Pending ultrasound Discharge - Discharge Information Problems reviewed: Yes Clinical Impression/Diagnosis: Abdominal pain affecting - Follow up/Referral Referrals: Ana Ford CNM [Primary Care Provider] - - Patient Discharge Instructions - Post Discharge Activity
[2020-01-14 23:05] LABS: BLOOD UREA NITROGEN 9.5 mg/dL (7-18); CALCIUM 8.7 mg/dL (8.5-10.1); CREATININE 0.5 mg/dL (0.55-1.3); POTASSIUM 3.7 mmol/L (3.5-5.1)
--- NOTE | 2020-01-14 23:05 | PDOC ---
*Physical Exam - Vital Signs Last Vital Signs Temp Pulse Resp BP Pulse Ox 98 F 83 18 100/65 100 01/14/20 20:51 01/14/20 20:51 01/14/20 20:51 01/14/20 20:51 01/14/20 20:51 ED Treatment Course - LABORATORY CBC & Chemistry Diagram: 01/14/20 21:59 01/14/20 21:59 - ADDITIONAL ORDERS Additional order review: 01/14/20 21:59 RBC 3.80 MCV 93.4 MCHC 34.0 RDW 12.4 MPV 8.4 D Neutrophils % 69.9 D Lymphocytes % 23.4 D Monocytes % 5.6 Eosinophils % 0.8 Basophils % 0.3 Medical Decision Making - Medical Decision Making 01/14/20 23:05 Patient seen by the advanced practice provider under my supervision. Ancillary testing reviewed as necessary. I agree with plan as outlined by the advanced practice provider. Discharge - Discharge Information Problems reviewed: Yes Clinical Impression/Diagnosis: UTI (urinary tract infection) Qualifiers: Urinary tract infection type: acute cystitis Hematuria presence: without hem aturia Qualified Code(s): N30.00 - Acute cystitis without hematuria Condition: Stable Disposition: HOME - Follow up/Referral Referrals: Ana Ford CNM [Primary Care Provider] - - Patient Discharge Instructions Additional Instructions: Rest, drink lots of fluids: Teas, water, soups Avoid contact with others until fevers and symptoms resolved Lots of handwashing and good hygiene Continue [id number] medications for symptomatic relief Tylenol or Motrin for fever and pain Continue all of antibiotics until completed Followup with private physician in one week for repeat urinalysis/reevaluation Return to emergency department for worsened symptoms, fevers, dehydration - Post Discharge Activity
[2020-01-14 23:09] LABS: HCG,QUALITATIVE URINE Positive
[2020-01-14 23:14] LABS: EPI CELLS >36 /uL (0-25.1); HYALINE CASTS 4 /uL (0-3.1); PH,URINE 5.5 (5.0-8.0); URINE APPEARANCE CLEAR; URINE BACTERIA 769 /uL (0-1359); URINE BILIRUBIN NEGATIVE (NEGATIVE); URINE COLOR DK YELLOW; URINE GLUCOSE (UA) NEGATIVE (NEGATIVE); URINE KETONE 4+ (NEGATIVE); URINE LEUK ESTERASE 1+ (NEGATIVE); URINE NITRITE NEGATIVE (NEGATIVE); URINE PROTEIN NEGATIVE (NEGATIVE); URINE RBC 7 /uL (0-23.9); URINE WBC 21 /uL (0-25.8)
--- NOTE | 2020-01-14 23:14 | PDOC ---
*Physical Exam - Vital Signs Last Vital Signs Temp Pulse Resp BP Pulse Ox 98 F 83 18 100/65 100 01/14/20 20:51 01/14/20 20:51 01/14/20 20:51 01/14/20 20:51 01/14/20 20:51 - Physical Exam General Appearance: Yes: Appropriately Dressed. No: Apparent Distress Female Pelvic Exam: positive: other (See previous providers note. Pelvic exam not reperformed.) ED Treatment Course - LABORATORY CBC & Chemistry Diagram: 01/14/20 21:59 01/14/20 21:59 - ADDITIONAL ORDERS Additional order review: Laboratory Results 01/14/20 01/14/20 22:00 21:59 Sodium 136 Potassium 3.7 Chloride 105 Carbon Dioxide 22 Anion Gap 9 BUN 9.5 Creatinine 0.5 L Est GFR (CKD-EPI)AfAm 157.00 Est GFR (CKD-EPI)NonAf 135.46 Random Glucose 64 L Calcium 8.7 Urine HCG, Qual Positive 01/14/20 21:59 RBC 3.80 MCV 93.4 MCHC 34.0 RDW 12.4 MPV 8.4 D Neutrophils % 69.9 D Lymphocytes % 23.4 D Monocytes % 5.6 Eosinophils % 0.8 Basophils % 0.3 - RADIOLOGY Radiology Studies Ordered: Category Date Time Status TRANSVAGINAL US PREG [US] Stat Ultrasound 01/14/20 20:53 Ordered ED Progress Note - Progress Note Progress Note: 01/14/20 23:13 Received signout from [facility] [employer]. Briefly this a 24-year-old woman 4 para 2 was currently 6 weeks gestation presents emergency department lower abdominal pain and some vaginal spotting over 1 day. Patient was seen and evaluated at her [employer] office today was told to take Tylenol and follow-up at a scheduled appointment in February. Patient reports she has not had care up until this point was concerns that she may have another miscarriage as her stated reason for ER visit. Per previous provider cervical os is closed and there is no blood in the vaginal vault. Disposition pending ultrasound 01/19/20 10:19 Medical Decision Making - Medical Decision Making 01/15/20 00:22 Laboratory Tests 01/14/20 01/14/20 01/14/20 21:59 21:59 21:59 WBC 8.1 RBC 3.80 Hgb 12.1 Hct 35.4 MCV 93.4 MCH 31.8 MCHC 34.0 RDW 12.4 Plt Count 255 MPV 8.4 D Absolute Neuts (auto) 5.6 Neutrophils % 69.9 D Lymphocytes % 23.4 D Monocytes % 5.6 Eosinophils % 0.8 Basophils % 0.3 Nucleated RBC % 0 Sodium 136 Potassium 3.7 Chloride 105 Carbon Dioxide 22 Anion Gap 9 BUN 9.5 Creatinine 0.5 L Est GFR (CKD-EPI)AfAm 157.00 Est GFR (CKD-EPI)NonAf 135.46 Random Glucose 64 L Calcium 8.7 Beta HCG, Quant 561035.5 Urine Color Urine Appearance Urine pH Ur Specific [place] Urine Protein Urine Glucose (UA) Urine Ketones Urine Blood Urine Nitrite Urine Bilirubin Urine Urobilinogen Ur Leukocyte Esterase Urine WBC (Auto) Urine RBC (Auto) Urine Casts (Auto) U Epithel Cells (Auto) Urine Bacteria (Auto) Urine HCG, Qual Blood Type O POSITIVE Antibody Screen Negative 01/14/20 22:00 WBC RBC Hgb Hct MCV MCH MCHC RDW Plt Count MPV Absolute Neuts (auto) Neutrophils % Lymphocytes % Monocytes % Eosinophils % Basophils % Nucleated RBC % Sodium Potassium Chloride Carbon Dioxide Anion Gap BUN Creatinine Est GFR (CKD-EPI)AfAm Est GFR (CKD-EPI)NonAf Random Glucose Calcium Beta HCG, Quant Urine Color Dk yellow Urine Appearance Clear Urine pH 5.5 D Ur Specific [place] 1.024 Urine Protein Negative Urine Glucose (UA) Negative Urine Ketones 4+ H Urine Blood Trace Urine Nitrite Negative Urine Bilirubin Negative Urine Urobilinogen 1.0 Ur Leukocyte Esterase 1+ H Urine WBC (Auto) 21 Urine RBC (Auto) 7 Urine Casts (Auto) 4 U Epithel Cells (Auto) >36 Urine Bacteria (Auto) 769 Urine HCG, Qual Positive Blood Type Antibody Screen Ultrasound is read by imaging on-call: Single live intrauterine relat es of approximately 8 weeks 4 days and a heart rate of 171 bpm. No ovarian torsion. Bilateral arterial and venous waveforms present. 1.5 cm corpus luteum right ovary also seen on 12/16/2019 Urinalysis is likely contaminated but given I will treat with Keflex 500 mg twice daily for the next 10 days. Patient has been instructed to continue vitamins and to follow-up with her [employer] at her previously scheduled appointment in February. Discussion had with patient regarding results of urinalysis she states she was prescribed antibiotics by her [employer]AN earlier today but has not picked it up. Patient has been instructed to fill her prescription and take her medicines as previously prescribed. I discussed the physical exam findings, ancillary test results and final diagnoses with the patient. I answered all of the patient's questions. The patient was satisfied with the care received and felt comfortable with the discharge plan and treatment plan. The patient will call their primary care physician within 24 hours to arrange follow-up and will return to the Emergency Department with any new, persistent or worsening symptoms. Portions of this note have been documented using voice recognition software. As a result, errors may occur in the wet process technician process. Effort has been made to correct all grammatical and wet process technician error, but some may have been missed which may produce sporadic inaccurate wet process technician or nonsensical phrases. 01/15/20 00:26 01/15/20 00:26 Discharge - Discharge Information Problems reviewed: Yes Clinical Impression/Diagnosis: UTI (urinary tract infection) Qualifiers: Urinary tract infection type: acute cystitis Hematuria presence: without hematuria Qualified Code(s): N30.00 - Acute cystitis without hematuria Condition: Stable Disposition: HOME - Admission No - Follow up/Referral Referrals: Ana Ford CNM [Primary Care Provider] - - Patient Discharge Instructions Additional Instructions: Rest, drink lots of fluids: Teas, water, soups Avoid contact with others until fevers and symptoms resolved Lots of handwashing and good hygiene Continue [id number] medications for symptomatic relief Tylenol or Motrin for fever and pain Continue all of antibiotics until completed Followup with private physician in one week for repeat urinalysis/reevaluation Return to emergency department for worsened symptoms, fevers, dehydration - Post Discharge Activity
[2020-01-15 01:17] VITALS: BP 109/64; PULSE 86; TEMP 97.6
== END 2020-01-15 01:19 | disposition home or self-care (01) ==
LOC: JER 20:45
DX: O23.591 Infection of other part of genital tract in pregnancy, first trimester (principal); Z3A.01 Less than 8 weeks gestation of pregnancy
CPT/HCPCS: 36415; 76801-TC; 80048; 81003; 84702; 84703; 85025; 86850; 86900; 86901; 87086; 99284-25

== ENCOUNTER 2020-02-11 16:55 | Emergency (ER) | payer OTHER ==
[2020-02-11 17:09] VITALS: BP 95/54; PULSE 72; TEMP 97.5; BMI 22.2
--- NOTE | 2020-02-11 18:49 | PDOC ---
History of Present Illness - General Chief Complaint: Vaginal Bleeding Stated Complaint: 12 WKS/VAG BLEEDING Time Seen by Provider: 02/11/20 17:47 History Source: Patient Exam Limitations: No Limitations - History of Present Illness Initial Comments: 02/11/20 18:43 24 year old female 12 weeks presenting to the Ed complaining of lower abdominal pain with brown discharge and some spotting. Pt states that all of these symtoms began this morning. Pain is described as cramps and intermittent. No vaginal bleeding right now, no dysuria. Pt otherwise denies: fevers, chills, syncope, lightheadedness, dizziness, headaches, neck pain, chest pain, shortness of breath, palpitations, back pain, abdominal pain, nausea, vomiting, diarrhea, constipation. Past History - Medical History Allergies/Adverse Reactions: Allergies Allergy/AdvReac Type Severity Reaction Status Date / Time No Known Allergies Allergy Verified 01/14/20 20:54 Home Medications: Ambulatory Orders Oseltamivir Phosphate [Tamiflu] 75 mg PO BID #10 capsule 10/22/18 Benzonatate [Tessalon Pearls -] 100 mg PO BID #20 capsule 09/16/19 Ibuprofen [Motrin -] 400 mg PO TID #21 tablet 09/16/19 Albuterol Sulfate [Albuterol Sulfate Hfa] 2 puff IH Q4H PRN #1 hfa.aer.ad 09/20/19 Famotidine 20 mg PO DAILY 09/20/19 Phenol/Glycerin [Chloraseptic Max [place]] 1 spray PO PRN 09/20/19 Cephalexin [Keflex] 500 mg PO BID 7 Days #14 capsule 02/11/20 Anemia: No Asthma: No Cancer: No Cardiac Disorders: No CVA: No COPD: No CHF: No Dementia: No Diabetes: No GI Disorders: Yes (GERD) Disorders: No HTN: No Hypercholesterolemia: No Liver Disease: No Seizures: No Thyroid Disease: No - Surgical History Appendectomy: Yes - Reproductive History Is Patient Now?: Yes (#): 4 Para: 2 Therapeutic (s) & number: No Spontaneous : 1 - Immunization History Immunization Up to Date: Yes - Psycho-Social/Smoking History Smoking History: Never smoked Have you smoked in the past 12 months: No Number of Cigarettes Smoked Daily: 3 Cigars Per Day: 0 Information on smoking cessation initiated: No - Substance Abuse Hx (Audit-C & DAST Scrn) How often the patient has a drink containing alcohol: Never Score: In Men: 4 or > Positive; In Women: 3 or > Positive: 0 Screen Result (Pos requires Nsg. Audit-10AR): Negative In the last yr the pt used illegal drug/Rx for NonMed reason: No Score: Yes response is considered Positive: 0 Screen Result (Positive result requires Nsg. DAST-10): Negative *Physical Exam - Vital Signs Last Vital Signs Temp Pulse Resp BP Pulse Ox 97.5 F L 72 16 95/54 L 100 02/11/20 17:06 02/11/20 17:06 02/11/20 17:06 02/11/20 17:06 02/11/20 17:06 - Physical Exam 02/11/20 18:59 Gen: AAOx 3, no acute distress, comfortable, no signs of respiratory distress HENT: atraumatic, normocephalic with no laceration or contusion. Nasal mucosa without erythema. Oropharynx without erythema or exudates. Mucous membranes moist. EYES: PERRL, EOM intact, conjunctiva pink NECK: supple; trachea midline; no JVD, no lymphadenopathy, or thyromegaly CV: RRR no murmurs, gallops, or rubs. CHEST: CTA b/l no wheezing, rales or rhonchi ABD: +BS/ND. no TTP; soft, no rebound, no guarding PELVIC: No external lesions, vaginal vault: + white/green discharge, no blood, - midline tenderness elicited with manual exam, no CMT or adnexal tenderness; os closed EXTREMITY: no cyanosis or erythema. 2+ dorsalis pedis, posterior tibial, and radial pulse. No pedal edema; no calf swelling or tenderness SKIN: no rash, warm and dry, no diaphoresis HEME: no purpura or ecchymosis NEURO: normal speech, CN II-XII intact, sensation intact, normal gait, no cerebellar deficits MS: 5/5 strength in all extremities, FROM intact in all extremities. ED Treatment Course - LABORATORY CBC & Chemistry Diagram: 02/11/20 18:34 02/11/20 18:34 - RADIOLOGY Radiology Studies Ordered: Category Date Time Status TRANSVAGINAL US PREG [US] Stat Ultrasound 02/11/20 18:18 Ordered Medical Decision Making - Medical Decision Making 02/11/20 19:00 24-year-old female G3, P2 presenting with vaginal discharge and intermittent bleeding Vital signs stable patient states that her blood pressure usually runs on the low side Will obtain labs GC UA UC and transvaginal ultrasound Will reassess based on his Labs All WNL RH + UA contaminated however has >3k WBC and pt is will treat with keflex TVUS: There is a single live intrauterine gestation with measurements corresponding to 12 weeks and 5 days. heart rate is 149 bpm. Amniotic fluid is subjectively normal. No acute or sac abnormalities are identified. Cervix measures 3.87 cm in length and is closed.. 1.4 cm right ovarian cyst. Ovaries otherwise normal. Patient is instructed to take antibiotics to completion and to follow-up with [employer] as well as PCP Strict return precautions given Patient appears well and is safe and stable for discharge Supportive care instructions explained and given to pt. Reasons to return emergently to ER explained and given. Importance of follow up with PMD and other specialists as indicated stressed to pt. Pt verbalized understanding of instructions. Pt to follow up with PMD in 2 days. Discharge - Discharge Information Problems reviewed: Yes Clinical Impression/Diagnosis: UTI (urinary tract infection) Qualifiers: Urinary tract infection type: acute cystitis Hematuria presence: without hematuria Qualified Code(s): N30.00 - Acute cystitis without hematuria Condition: Stable Disposition: HOME - Additional Discharge Information Prescriptions: Cephalexin [Keflex] 500 mg PO BID 7 Days #14 capsule - Follow up/Referral Referrals: Mervat Hawkins [Non Staff, Medical] - - Patient Discharge Instructions Patient Printed Discharge Instructions: DI for Urinary Tract Infection (UTI) - Post Discharge Activity
[2020-02-11 18:57] LABS: BASO % 0.4 % (0-2.0); EOS % 1.4 % (0-4.5); HEMATOCRIT 32.8 % (32.4-45.2); HEMOGLOBIN 11.4 GM/dL (10.7-15.3); LYMPH % 25.9 % (8-40); MCH 31.9 pg (25.7-33.7); MCHC 34.7 g/dl (32.0-36.0); MEAN CELL VOLUME 91.9 fl (80-96); MEAN PLT VOLUME 8.4 fl (7.5-11.1); MONO % 5.7 % (3.8-10.2); NEUT % 66.6 % (42.8-82.8); PLATELET COUNT 242 K/MM3 (134-434); RBC 3.57 M/mm3 (3.60-5.2); RDW 12.7 % (11.6-15.6); WHITE BLOOD COUNT 5.3 K/mm3 (4.0-10.0)
[2020-02-11 19:24] LABS: ALBUMIN 3.6 g/dl (3.4-5.0); BILIRUBIN,TOTAL 0.3 mg/dL (0.2-1); BLOOD UREA NITROGEN 5.6 mg/dL (7-18); CALCIUM 8.7 mg/dL (8.5-10.1); CREATININE 0.5 mg/dL (0.55-1.3); POTASSIUM 3.9 mmol/L (3.5-5.1); TOT PROT 7.1 g/dl (6.4-8.2)
[2020-02-11 22:57] LABS: EPI CELLS >36 /uL (0-25.1); HYALINE CASTS 3 /uL (0-3.1); URINE APPEARANCE CLOUDY; URINE BACTERIA 3568 /uL (0-1359); URINE BILIRUBIN NEGATIVE (NEGATIVE); URINE COLOR YELLOW; URINE GLUCOSE (UA) NEGATIVE (NEGATIVE); URINE KETONE 1+ (NEGATIVE); URINE LEUK ESTERASE 1+ (NEGATIVE); URINE NITRITE NEGATIVE (NEGATIVE); URINE PROTEIN NEGATIVE (NEGATIVE); URINE RBC 5 /uL (0-23.9); URINE UROBILINOGEN 0.2 mg/dL (0.2-1.0); URINE WBC 11 /uL (0-25.8)
== END 2020-02-12 00:10 | disposition home or self-care (01) ==
LOC: JER 16:55
DX: O23.591 Infection of other part of genital tract in pregnancy, first trimester (principal); Z3A.12 12 weeks gestation of pregnancy
CPT/HCPCS: 36415; 76801-TC; 80053; 81003; 85025; 86850; 86900; 86901; 87086; 87491; 87591; 99284-25

== ENCOUNTER 2020-06-25 13:41 | Inpatient (IN) | payer OTHER ==
[2020-06-25] MEDS ORDERED: AMPICILLIN - 2 GM in SODIUM CHLORIDE 100 ML IVPB ONE (14:04)
[2020-06-25] MEDS ORDERED: BETAMET ACET/BETAMET NA PH 30 MG/5 ML VIAL IM ONE (14:07)
[2020-06-25] MEDS ORDERED: AMPICILLIN SODIUM 2 GM VIAL ONE (14:08)
[2020-06-25] MEDS ORDERED: MAGNESIUM 4GM/H20 - 4 GM/100 ML IVPB IVPB SCH (14:15)
[2020-06-25] MEDS ORDERED: ELECTROLYTE-148 SOLN 1,000 ML IV SCH (14:15)
[2020-06-25 14:42] VITALS: BP 115/72; PULSE 86; TEMP 98.1; BMI 23.8
[2020-06-25 14:52] LABS: BASO % 0.6 % (0-2.0); EOS % 0.2 % (0-4.5); HEMATOCRIT 33.8 % (32.4-45.2); HEMOGLOBIN 11.5 GM/dL (10.7-15.3); LYMPH % 10.7 % (8-40); MCH 31.5 pg (25.7-33.7); MCHC 34.1 g/dl (32.0-36.0); MEAN CELL VOLUME 92.5 fl (80-96); MEAN PLT VOLUME 7.7 fl (7.5-11.1); MONO % 5.4 % (3.8-10.2); NEUT % 83.1 % (42.8-82.8); PLATELET COUNT 238 K/MM3 (134-434); RBC 3.65 M/mm3 (3.60-5.2); RDW 13.2 % (11.6-15.6); WHITE BLOOD COUNT 10.3 K/mm3 (4.0-10.0)
[2020-06-25 14:58] LABS: INR 0.94 (0.83-1.09); PROTHROMBIN TIME (PATIENT) 11.4 SEC (9.7-13.0)
[2020-06-25 15:09] LABS: POTASSIUM 3.9 mmol/L (3.5-5.1)
[2020-06-25 15:10] LABS: CALCIUM 8.1 mg/dL (8.5-10.1)
[2020-06-25 15:11] LABS: BLOOD UREA NITROGEN 4.5 mg/dL (7-18)
[2020-06-25 15:14] LABS: CREATININE 0.4 mg/dL (0.55-1.3)
[2020-06-25] MEDS ORDERED: MAGNESIUM SULFATE 20GM/500ML - 20 GM/500 ML INFUS.BAG IVPB SCH (15:15)
[2020-06-25 16:08] LABS: HIV INTERPRETATION NEGATIVE (NEGATIVE)
[2020-06-25] MEDS ORDERED: AMPICILLIN - 1 GM in SODIUM CHLORIDE 100 ML IVPB SCH (18:00)
== END 2020-06-25 16:28 | disposition short-term general hospital (02) | DRG 563 ==
LOC: JLDR 13:41
PROVIDERS: ADMIT Student in an Organized Health Care Education/Training Program; ATTEND Student in an Organized Health Care Education/Training Program
DX: O60.03 Preterm labor without delivery, third trimester (principal); Z3A.31 31 weeks gestation of pregnancy
CPT/HCPCS: 36415; 80048; 85025; 85610; 85730; 86780; 86850; 86900; 86901; 87389; 96372

== ENCOUNTER 2020-10-17 17:31 | Emergency (ER) | payer OTHER ==
[2020-10-17 17:56] VITALS: BP 93/60; PULSE 75; TEMP 98.5; BMI 23.8
[2020-10-17] MEDS ORDERED: MAG HYDROX/AL HYDROX/SIMETH 30 ML UNIT-DOSE CUP PO ONE (19:15)
[2020-10-17] MEDS ORDERED: DICYCLOMINE HCL 10 MG CAPSULE PO ONE (19:15)
[2020-10-17] MEDS ORDERED: DICYCLOMINE HCL 10 MG CAPSULE ONE (19:21)
[2020-10-17] MEDS ORDERED: MAG HYDROX/AL HYDROX/SIMETH 30 ML UNIT-DOSE CUP ONE (19:21)
[2020-10-17 19:38] LABS: BASO % 0.8 % (0-2.0); HEMATOCRIT 37.1 % (32.4-45.2); HEMOGLOBIN 12.8 GM/dL (10.7-15.3); LYMPH % 40.8 % (8-40); MCHC 34.4 g/dl (32.0-36.0); MEAN CELL VOLUME 92.9 fl (80-96); MEAN PLT VOLUME 7.6 fl (7.5-11.1); MONO % 7.4 % (3.8-10.2); PLATELET COUNT 275 K/MM3 (134-434); RDW 13.2 % (11.6-15.6); WHITE BLOOD COUNT 5.3 K/mm3 (4.0-10.0)
[2020-10-17 19:47] LABS: URINE APPEARANCE CLEAR; URINE BILIRUBIN NEGATIVE (NEGATIVE); URINE COLOR YELLOW; URINE GLUCOSE (UA) NEGATIVE (NEGATIVE); URINE KETONE TRACE (NEGATIVE); URINE LEUK ESTERASE NEGATIVE (NEGATIVE); URINE NITRITE NEGATIVE (NEGATIVE); URINE PROTEIN NEGATIVE (NEGATIVE); URINE UROBILINOGEN 0.2 mg/dL (0.2-1.0)
[2020-10-17 19:52] LABS: HCG,QUALITATIVE URINE Negative
[2020-10-17 20:05] LABS: ALBUMIN 4.5 g/dl (3.4-5.0); BLOOD UREA NITROGEN 15.1 mg/dL (7-18); CALCIUM 8.7 mg/dL (8.5-10.1)
[2020-10-17 20:08] LABS: CREATININE 0.7 mg/dL (0.55-1.3)
[2020-10-17 20:09] LABS: BILIRUBIN,TOTAL 0.6 mg/dL (0.2-1); TOT PROT 7.7 g/dl (6.4-8.2)
[2020-10-17] MEDS ORDERED: ACETAMINOPHEN 325 MG TABLET (FP) PO ONE (23:50)
[2020-10-17] MEDS ORDERED: FAMOTIDINE 20 MG TABLET PO ONE (23:51)
[2020-10-17] MEDS ORDERED: FAMOTIDINE 20 MG TABLET ONE (23:55)
[2020-10-17] MEDS ORDERED: ACETAMINOPHEN 325 MG TABLET (FP) ONE (23:55)
== END 2020-10-18 00:35 | disposition home or self-care (01) ==
LOC: JER 17:31
DX: R10.32 Left lower quadrant pain (principal)
CPT/HCPCS: 36415; 76705-TC; 76830-TC; 80053; 81003; 84703; 85025; 87086; 99284-25

== ENCOUNTER 2022-08-10 16:58 | Emergency (ER) | payer OTHER ==
[2022-08-10 17:35] VITALS: BP 95/55; PULSE 78; RESP 14; TEMP 98.2; BMI 24.2
[2022-08-10] MEDS ORDERED: ACETAMINOPHEN 500 MG TABLET (FP) PO ONE (18:09)
[2022-08-10 18:52] LABS: BASO % 1.8 % (0-2.0); EOS % 2.2 % (0-4.5); HEMATOCRIT 36.2 % (32.4-45.2); HEMOGLOBIN 12.2 GM/dL (10.7-15.3); LYMPH % 30.6 % (8-40); MCH 31.9 pg (25.7-33.7); MCHC 33.8 g/dl (32.0-36.0); MEAN CELL VOLUME 94.4 fl (80-96); MEAN PLT VOLUME 7.7 fl (7.5-11.1); MONO % 7.5 % (3.8-10.2); NEUT % 57.9 % (42.8-82.8); PLATELET COUNT 281 10^3/uL (134-434); RBC 3.83 M/mm3 (3.60-5.2); RDW 13.1 % (11.6-15.6); WHITE BLOOD COUNT 6.2 K/mm3 (4.0-10.0)
[2022-08-10 18:55] LABS: HCG,QUALITATIVE URINE Positive
[2022-08-10 18:57] LABS: EPI CELLS 6 /uL (0-25.1); HYALINE CASTS 0 /uL (0-3.1); URINE APPEARANCE CLEAR; URINE BACTERIA 489 /uL (0-1359); URINE BILIRUBIN NEGATIVE (NEGATIVE); URINE COLOR YELLOW; URINE GLUCOSE (UA) NEGATIVE (NEGATIVE); URINE KETONE NEGATIVE (NEGATIVE); URINE LEUK ESTERASE 1+ (NEGATIVE); URINE NITRITE NEGATIVE (NEGATIVE); URINE PROTEIN NEGATIVE (NEGATIVE); URINE RBC 3 /uL (0-23.9); URINE UROBILINOGEN 0.2 mg/dL (0.2-1.0); URINE WBC 19 /uL (0-25.8)
[2022-08-10 19:12] LABS: CALCIUM 8.6 mg/dL (8.5-10.1)
[2022-08-10 19:13] LABS: BLOOD UREA NITROGEN 10.8 mg/dL (7-18)
[2022-08-10 19:15] LABS: CREATININE 0.5 mg/dL (0.55-1.3)
[2022-08-10 19:17] LABS: ANISOCYTOSIS 1+; BILIRUBIN,TOTAL 0.2 mg/dL (0.2-1); MACROCYTOSIS 0; TOT PROT 7.3 g/dl (6.4-8.2)
[2022-08-10] MEDS ORDERED: CEPHALEXIN MONOHYDRATE 500 MG CAPSULE (UD) PO ONE (19:53)
[2022-08-10] MEDS ORDERED: CEPHALEXIN MONOHYDRATE 500 MG CAPSULE (UD) ONE (19:55)
== END 2022-08-10 21:00 | disposition left against medical advice (07) ==
LOC: JER 16:58 → JERFT 16:58 → JER 21:00
DX: O26.891 Other specified pregnancy related conditions, first trimester (principal); R10.30 Lower abdominal pain, unspecified; Z3A.01 Less than 8 weeks gestation of pregnancy
CPT/HCPCS: 36415; 76817-TC; 80053; 81003; 84702; 84703; 85025; 86850; 86900; 86901; 87086; 87186; 87491; 87591; 99284-25

== ENCOUNTER 2022-09-16 16:53 | Emergency (ER) | payer OTHER ==
[2022-09-16 17:13] VITALS: BMI 23.8
[2022-09-16] MEDS ORDERED: ONDANSETRON 4 MG/2 ML VIAL IVPUSH ONE (17:21)
[2022-09-16] MEDS ORDERED: SODIUM CHLORIDE 1,000 ML IV STA (17:21)
[2022-09-16] MEDS ORDERED: ACETAMINOPHEN 1000 MG/100 ML BAG IVPB ONE (17:21)
[2022-09-16] MEDS ORDERED: ONDANSETRON 4 MG/2 ML VIAL ONE (17:44)
[2022-09-16] MEDS ORDERED: ACETAMINOPHEN INJECTION 100 ML IVPB ONE (17:45)
[2022-09-16 17:54] LABS: HEMATOCRIT 35.5 % (32.4-45.2); HEMOGLOBIN 12.7 G/dL (10.7-15.3); MCH 32.9 pg (25.7-33.7); MCHC 35.6 g/dl (32.0-36.0); MEAN CELL VOLUME 92.2 fl (80-96); MEAN PLT VOLUME 7.3 fl (7.5-11.1); PLATELET COUNT 227.5 10^3/uL (134-434); RBC 3.85 10^6/uL (3.60-5.2)
[2022-09-16 18:01] LABS: EPITHELIAL CELLS FEW /hpf
[2022-09-16 18:09] LABS: HCG,QUALITATIVE URINE Negative
[2022-09-16 18:38] LABS: ALBUMIN 3.8 g/dl (3.4-5.0); BILIRUBIN,TOTAL 0.6 mg/dl (0.2-1); CALCIUM 8.4 mg/dl (8.5-10); CREATININE 0.5 mg/dl (0.55-1.3); TOT PROT 6.5 g/dl (6.4-8.2)
[2022-09-16] MEDS ORDERED: CEFTRIAXONE 1,000 MG in DEXTROSE 5%-WATER - 50 ML IVPB ONE (18:41)
[2022-09-16 18:45] LABS: PLATELET ESTIMATE ADEQUATE
[2022-09-16] MEDS ORDERED: cefTRIAXone SODIUM 1 GM VIAL ONE (18:50)
[2022-09-16 21:04] VITALS: BP 100/58; PULSE 77; RESP 18; TEMP 98.7
== END 2022-09-16 21:38 | disposition home or self-care (01) ==
LOC: FER 16:53
PROC: 3E03329 Introduction of Other Anti-infective into Peripheral Vein, Percutaneous Approach (ICD-10-PCS; principal; 2022-09-16)
PROC: 3E033NZ Introduction of Analgesics, Hypnotics, Sedatives into Peripheral Vein, Percutaneous Approach (ICD-10-PCS; 2022-09-16)
PROC: 3E033GC Introduction of Other Therapeutic Substance into Peripheral Vein, Percutaneous Approach (ICD-10-PCS; 2022-09-16)
PROC: 3E0337Z Introduction of Electrolytic and Water Balance Substance into Peripheral Vein, Percutaneous Approach (ICD-10-PCS; 2022-09-16)
DX: N34.2 Other urethritis (principal); N39.0 Urinary tract infection, site not specified; R10.31 Right lower quadrant pain
CPT/HCPCS: 36415; 74177-TC; 80053; 81003; 81015; 83690; 84703; 85027; 87086; 87186; 99285-25; Q9967

== ENCOUNTER 2023-05-12 10:05 | Emergency (ER) | payer OTHER ==
[2023-05-12 10:36] VITALS: BP 97/65; TEMP 98.3; BMI 23.4
[2023-05-12] MEDS ORDERED: SODIUM CHLORIDE 1,000 ML IV STA ×2 (10:58→14:41)
[2023-05-12] MEDS ORDERED: ACETAMINOPHEN 1000 MG/100 ML BAG IVPB ONE (10:58)
[2023-05-12] MEDS ORDERED: ACETAMINOPHEN INJECTION 100 ML IVPB ONE (11:06)
[2023-05-12 12:33] LABS: BASO % 0.4 % (0-2.0); EOS % 1.6 % (0-4.5); HEMATOCRIT 38.8 % (32.4-45.2); HEMOGLOBIN 13.3 GM/dL (10.7-15.3); MCH 31.7 pg (25.7-33.7); MCHC 34.4 g/dl (32.0-36.0); MEAN CELL VOLUME 92.2 fl (80-96); MEAN PLT VOLUME 7.8 fl (7.5-11.1); MONO % 9.7 % (3.8-10.2); NEUT % 64.3 % (42.8-82.8); PLATELET COUNT 303 10^3/uL (134-434); RBC 4.21 M/mm3 (3.60-5.2); RDW 13.1 % (11.6-15.6); WHITE BLOOD COUNT 7.3 K/mm3 (4.0-10.0)
[2023-05-12 12:37] LABS: EPI CELLS >36 /uL (0-25.1); HCG,QUALITATIVE URINE Negative; HYALINE CASTS 1 /uL (0-3.1); PH,URINE 6.5 (5.0-8.0); URINE APPEARANCE CLOUDY; URINE BACTERIA >9,000 /uL (0-1359); URINE BILIRUBIN NEGATIVE (NEGATIVE); URINE COLOR YELLOW; URINE GLUCOSE (UA) NEGATIVE (NEGATIVE); URINE KETONE NEGATIVE (NEGATIVE); URINE LEUK ESTERASE 3+ (NEGATIVE); URINE NITRITE POSITIVE (NEGATIVE); URINE PROTEIN 1+ (NEGATIVE); URINE RBC 41 /uL (0-23.9); URINE WBC 1443 /uL (0-25.8)
[2023-05-12 12:39] LABS: INR 1.07 (0.83-1.09); PROTHROMBIN TIME (PATIENT) 12.4 SEC (9.7-13.0)
[2023-05-12 12:42] LABS: ACTIVATED PTT 28.2 SECONDS (25.2-36.5)
[2023-05-12 12:59] LABS: CALCIUM 9.2 mg/dL (8.5-10.1)
[2023-05-12 13:00] LABS: BLOOD UREA NITROGEN 8.4 mg/dL (7-18)
[2023-05-12 13:03] LABS: CREATININE 0.5 mg/dL (0.55-1.3)
[2023-05-12 13:05] LABS: BILIRUBIN,TOTAL 0.6 mg/dL (0.2-1); TOT PROT 7.8 g/dl (6.4-8.2)
[2023-05-12] MEDS ORDERED: CEFTRIAXONE 1 GM in DEXTROSE 5%-WATER - 100 ML IVPB ONE (14:41)
[2023-05-12] MEDS ORDERED: CEFTRIAXONE 1 GM/50 ML BAG ONE (15:07)
[2023-05-12 16:40] VITALS: PULSE 66; RESP 18
== END 2023-05-12 16:41 | disposition home or self-care (01) ==
LOC: JER 10:05
PROC: 3E03329 Introduction of Other Anti-infective into Peripheral Vein, Percutaneous Approach (ICD-10-PCS; principal; 2023-05-12)
PROC: 3E033NZ Introduction of Analgesics, Hypnotics, Sedatives into Peripheral Vein, Percutaneous Approach (ICD-10-PCS; 2023-05-12)
PROC: 3E0337Z Introduction of Electrolytic and Water Balance Substance into Peripheral Vein, Percutaneous Approach (ICD-10-PCS; 2023-05-12)
DX: R10.9 Unspecified abdominal pain (principal); N10 Acute pyelonephritis
CPT/HCPCS: 36415; 74176-TC; 80053; 81003; 84703; 85025; 85610; 85730; 87086; 87186; 99284-25

== ENCOUNTER 2024-09-20 17:20 | Emergency (ER) | payer OTHER ==
[2024-09-20 17:28] VITALS: BP 103/53; PULSE 69; RESP 20; TEMP 98.4; BMI 16.0
[2024-09-20] MEDS ORDERED: ONDANSETRON 4 MG/2 ML VIAL ONE (19:49)
[2024-09-20] MEDS: SODIUM CHLORIDE 0.9% 500 ML INFUS.BAG IV ONE (20:07)
[2024-09-20] MEDS: ONDANSETRON 4 MG/2 ML VIAL IVPUSH ONE (20:07)
[2024-09-20 20:13] LABS: BASO % 0.3 % (0-2.0); EOS % 2.9 % (0-4.5); HEMATOCRIT 36.7 % (32.4-45.2); HEMOGLOBIN 12.6 GM/dL (10.7-15.3); MCH 31.8 pg (25.7-33.7); MCHC 34.3 g/dl (32.0-36.0); MEAN CELL VOLUME 92.8 fl (80-96); MEAN PLT VOLUME 7.4 fl (7.5-11.1); MONO % 6.1 % (3.8-10.2); NEUT % 59.7 % (42.8-82.8); PLATELET COUNT 298 10^3/uL (134-434); RBC 3.96 M/mm3 (3.60-5.2); RDW 13.3 % (11.6-15.6); URINE APPEARANCE CLEAR; URINE BILIRUBIN NEGATIVE (NEGATIVE); URINE COLOR YELLOW; URINE GLUCOSE (UA) NEGATIVE (NEGATIVE); URINE KETONE NEGATIVE (NEGATIVE); URINE LEUK ESTERASE NEGATIVE (NEGATIVE); URINE NITRITE NEGATIVE (NEGATIVE); URINE PROTEIN NEGATIVE (NEGATIVE); WHITE BLOOD COUNT 7.6 K/mm3 (4.0-10.0)
[2024-09-20 20:43] LABS: POTASSIUM 4.9 mmol/L (3.5-5.1)
[2024-09-20 20:45] LABS: BLOOD UREA NITROGEN 12.2 mg/dL (7-18); CALCIUM 8.6 mg/dL (8.5-10.1)
[2024-09-20 20:49] LABS: CREATININE 0.4 mg/dL (0.55-1.3)
[2024-09-20 20:50] LABS: BILIRUBIN,TOTAL 0.5 mg/dL (0.2-1); TOT PROT 7.4 g/dl (6.4-8.2)
[2024-09-20 22:36] LABS: HIV INTERPRETATION NEGATIVE (NEGATIVE)
== END 2024-09-20 22:17 | disposition home or self-care (01) ==
LOC: JER 17:20
PROC: 3E033GC Introduction of Other Therapeutic Substance into Peripheral Vein, Percutaneous Approach (ICD-10-PCS; principal; 2024-09-20)
DX: O20.0 Threatened abortion (principal); O26.891 Other specified pregnancy related conditions, first trimester; R10.30 Lower abdominal pain, unspecified; R11.0 Nausea; Z3A.01 Less than 8 weeks gestation of pregnancy
CPT/HCPCS: 36415; 76817-TC; 80053; 81003; 84702; 85025; 86803; 87086; 87389; 99285-25